=== PATIENT | male | born 1990 | race Two or more races ===

== ENCOUNTER 2017-03-01 12:34 | Emergency (ER) | payer OTHER ==
[2017-03-01 12:40] VITALS: BP 126/99; PULSE 73; TEMP 98.8; BMI 21.6
[2017-03-01] MEDS ORDERED: IBUPROFEN 400 MG TABLET (FP) PO ONE ×2 (13:41→13:42)
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
== END 2017-03-01 14:33 | disposition home or self-care (01) ==
LOC: JERFT 12:34
DX: S63.502A Unspecified sprain of left wrist, initial encounter (principal); W22.8XXA Striking against or struck by other objects, initial encounter; Y93.89 Activity, other specified; Y92.89 Other specified places as the place of occurrence of the external cause; Y99.8 Other external cause status
CPT/HCPCS: 73110-TC-LT; 73130-TC-LT; 99281-25